=== PATIENT | female | born 2005 | race Caucasian/White ===

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

== ENCOUNTER → 2025-08-26 13:09 | Outpatient (BNVA) | payer MEDICAID, SELFPAY | PROVIDERS: PCP Family Medicine; Visit Provider Nurse Practitioner Women's Health | DX: Z30.9 Encounter for contraceptive management, unspecified (principal) | CPT/HCPCS: 81025 ==